=== PATIENT | female | born 1975 | race American Indian/Alaskan Native ===

== ENCOUNTER 2017-09-05 15:06 | Inpatient (IN) | payer MEDICAID ==
[2017-09-05] MEDS ORDERED: ALUM-MAG HYDROX-SIMETH 200-200-20MG/5ML PO ONE (16:15)
[2017-09-05] MEDS ORDERED: PEPCID PO ONE (16:15)
[2017-09-05] MEDS ORDERED: LIDOCAINE VISCOUS 2% PO ONE (16:15)
--- NOTE | 2017-09-05 16:17 | Emergency Department Report ---
ED Back Pain/Injury HPI - General Chief Complaint: Back Pain/Injury Stated Complaint: PAIN MID BACK THAT RAD TO EPIGASTRIC AREA Time Seen by Provider: 09/05/17 16:08 Source: patient, RN notes reviewed, old records reviewed Mode of arrival: Ambulatory Limitations: No Limitations - History of Present Illness MD Complaint: back pain, other (RAD THRU TO EPIGASTRIC AREA AND INTO CHEST) -: Gradual, week(s) Similar Symptoms Previously: No Place: home Radiation: other (THORACIC BACK AREA TO EPIGASTRIC TO CHEST) Quality: sharp Consistency: constant Improves With: other (GOODY'S ASA HELPS SOME. HAS TAKEN A LOT DURING PAST WEEKS) Worsens With: none Associated Symptoms: abdominal pain, malaise (SOMETIMES; NO HX FIBROIDS OR ENDOMETRIOSIS. LMP 1 W AGO), syncope (DIZZY SOMETIMES). denies: confusion, weakness, chest pain, numbness, difficulty walking, cough, difficulty urinating , diaphoresis, incontinence, fever/chills, constipation, headaches, loss of appetite, nausea/vomiting, rash, seizure, shortness of breath - Related Data Home Medications Medication Instructions Recorded Confirmed Last Taken No Known Home Medications [No 07/30/14 07/30/14 Unknown Reported Home Medications] Allergies Allergy/AdvReac Type Severity Reaction Status Date / Time No Known Allergies Allergy Verified 07/30/14 12:43 ED Review of Systems ROS: Stated complaint: BACK/CHEST PAIN Other details as noted in HPI Comment: All other systems reviewed and negative Constitutional: malaise. denies: fever Respiratory: denies: shortness of breath Cardiovascular: chest pain, syncope (DIZZY) Gastrointestinal: abdominal pain. denies: nausea, vomiting, diarrhea, constipation, hematemesis, melena Genitourinary: denies: urgency, dysuria Musculoskeletal: back pain. denies: joint swelling, arthralgia Skin: denies: rash, lesions Neurological: denies: headache, weakness Psychiatric: denies: anxiety, depression Hematological/Lymphatic: denies: easy bleeding ED Past Medical Hx - Past Medical History Previous Medical History?: Yes Hx Hypertension: No Hx Heart Attack/AMI: No Hx Asthma: No Hx COPD: No Additional medical history: HX LONG AGO OF ANEMIA- NEVER TOLD TO FOLLOW UP. TOLD IF SHE IS TIRED SHE SHOULD TAKE IRON. HAS NOT BEEN AN ISSUE FOR HER FAR SHE KNOWS IT. SHE TAKES IRON SOMETIMES - Surgical History Past Surgical History?: Yes Additional Surgical History: x 1 - Social History Smoking Status: Never Smoker Substance Use Type: Non Opiate Pain, Prescribed - Medications Home Medications: Home Medications Medication Instructions Recorded Confirmed Last Taken Type No Known Home Medications [No 07/30/14 07/30/14 Unknown History Reported Home Medications] ED Physical Exam - General Limitations: No Limitations General appearance: alert - Head Head exam: Present: normocephalic - Eye Eye exam: Present: PERRL, EOMI - ENT ENT exam: Present: mucous membranes moist, other (PALE) - Neck Neck exam: Present: normal inspection - Respiratory Respiratory exam: Present: normal lung sounds bilaterally - Cardiovascular Cardiovascular Exam: Present: regular rate - GI/Abdominal GI/Abdominal exam: Present: soft, tenderness (MILD EPIGASTRIC), normal bowel sounds, other (GUAIC POS FOR BLOOD- ). Absent: distended, guarding, rebound, rigid, diminished bowel sounds, hyperactive bowel sounds, hypoactive bowel sounds, organomegaly, mass, bruit, pulsatile mass, hernia - Rectal Rectal exam: Present: heme (+) stool. Absent: black stool, bloody stool, fecal impaction, hemorrhoids - Extremities Exam Extremities exam: Present: normal inspection - Back Exam Back exam: Present: normal inspection. Absent: full ROM, tenderness, CVA tenderness (R), CVA tenderness (L), muscle spasm, paraspinal tenderness, vertebral tenderness - Neurological Exam Neurological exam: Present: alert, oriented X3, CN II-XII intact, normal gait, reflexes normal. Absent: motor sensory deficit - Psychiatric Psychiatric exam: Present: normal affect, normal mood - Skin Skin exam: Present: warm, dry, intact, pallor ED Course Vital Signs 09/05/17 09/05/17 09/05/17 15:12 17:53 17:55 Temperature 97.7 F 96.9 F L Pulse Rate 77 69 Pulse Rate [ 73 Lying] Respiratory 16 Rate Blood Pressure 128/81 Blood Pressure 131/69 [Lying] Blood Pressure 122/83 [Right] O2 Sat by Pulse 100 Oximetry - Reevaluation(s) Reevaluation #1: 09/05/17 TO ER TODAY W THORACIC MID BACK PAIN THAT IS RAD TO THE EPIGASTRIC AREA AND UP INTO CHEST THIS HAS BEEN FOR WEEKS SHE HAS BEEN TAKING GOODYS FOR IT THE PAIN WAKES HER AT NIGHT NO N/V/D NO BLOODY STOOL NO ABD PAIN NO OTHER S/S NO PCP DENIED RX ON ADMIT NO FEVER VSS NO TACHY NO HYPOTENSION NO CVA TENDERNESS SEE EXAM LABS NOTED- GUIAC POS STOOL PER PROVIDER GI COCKTAIL W SOME RELIEF Reevaluation #2: 09/05/17 17:[address] BROUSSARD ADMIT TO DR LUO TRANSFUSE 1 U P RBC INT W NS WHEN PROBED PT MORE SHE SAID NO ONE EVER TOLD HER TO FOR 2013 ISSUE W COLON POLYPS SHE SAID AT ONE TIME SOMEONE TOLD HER SHE HAD ANEMIA AND SHE TAKE FE PRN MENSES LAST WEEK SHE IS TIRED DURING MENSES NO HX FIBROIDS OR ENDOMETRIOSIS ADDITIONAL ORDERS PLACED DR LUO AWARE OF P ADMIT. ED Medical Decision Making - Lab Data Result diagrams: 09/05/17 16:29 09/05/17 16:29 - EKG Data EKG shows normal: sinus rhythm - EKG Data Interpretation: no acute changes - Radiology Data Radiology results: report reviewed, image reviewed NO PERF - Medical Decision Making ADMIT RO U V. L GI BLEED NSAID USE DT BACK PAIN RO ULCER- NO FREE AIR ANEMIA- A/C REMOTE HX OF COLON POLYPS - Differential Diagnosis BACK PAIN ? ETIO Critical care attestation.: If time is entered above; I have spent that time in minutes in the direct care of this critically ill patient, excluding procedure time. ED Disposition Clinical Impression: GI bleed, Anemia, Epigastric pain Disposition: OP ADMIT IP TO THIS HOSP Is pt being admited?: Yes Does the pt Need Aspirin: No Condition: Stable Referrals: JESE MORALES MD [Primary Care Provider] - 3-5 Days Time of Disposition: 17:43
[2017-09-05 16:33] LABS: Bilirubin,Urine NEG (Negative); Blood,Urine NEG (Negative); Ketones,Urine NEG (Negative); Leukocyte Esterase,Urine NEG (Negative); Mucus,Urine 3+ /HPF; Nitrite,Urine NEG (Negative); Protein,Urine <15 mg/dL mg/dL (Negative); RBC,Urine < 1.0 /HPF (0.0-6.0); Urobilinogen,Urine < 2.0 mg/dL (<2.0)
[2017-09-05 17:03] LABS: Alanine Aminotransferase 7 units/L (7-56); Albumin 4.2 g/dL (3.9-5); Albumin/Globulin Ratio 1.7 %; Alkaline Phosphatase 84 units/L (35-129); Anion Gap 16 mmol/L; BUN/Creatinine Ratio 12; Bilirubin,Total < 0.20 mg/dL (0.1-1.2); Blood Urea Nitrogen 7 mg/dL (7-17); Calcium 8.9 mg/dL (8.4-10.2); Carbon Dioxide 24 mmol/L (22-30); Chloride 104.3 mmol/L (98-107); Glucose 81 mg/dL (65-100); Potassium 4.5 mmol/L (3.6-5.0); Sodium 140 mmol/L (137-145); Total Protein 6.7 g/dL (6.3-8.2)
--- NOTE | 2017-09-05 17:04 | XRay Report ---
FINAL REPORT PROCEDURE: XR CHEST ROUTINE 2V TECHNIQUE: Two views of the chest are obtained HISTORY: PAIN RAD FROM BACK THRU CHEST COMPARISON: No prior studies are available for comparison. FINDINGS: The heart is normal in size. There is no focal infiltrate, pneumothorax or pleural effusion. No compression fracture is seen in the visualized portions of the thoracic spine. There may be subtle dextroscoliosis in the mid thoracic spine. IMPRESSION: There may be minimal scoliosis in the mid thoracic spine.
[2017-09-05 17:05] LABS: Hematocrit 25.4 % (30.3-42.9); Hemoglobin 7.5 gm/dl (10.1-14.3); Mean Corpuscular HGB Conc 30 % (30-34); Platelet Count 604 K/mm3 (140-440); Red Blood Count 4.34 M/mm3 (3.65-5.03); White Blood Count 8.4 K/mm3 (4.5-11.0)
[2017-09-05 17:07] LABS: Mean Corpuscular Hemoglobin 17 pg (28-32); Mean Corpuscular Volume 58 fl (79-97); Red Cell Distribution Width 20.7 % (13.2-15.2)
[2017-09-05] MEDS ORDERED: NACL 0.9% 500 ML 500 ML IV ONE (17:30)
[2017-09-05 17:38] LABS: Iron 18 ug/dL (37-170); Total Iron Binding Capacity 450 mcg/dL (250-450)
[2017-09-05] MEDS ORDERED: NACL 0.9% 1000 ML 1,000 ML IV ONE (17:41)
[2017-09-05] MEDS ORDERED: NACL 0.9% 1000 ML 1,000 ML ONE (17:45)
[2017-09-05] MEDS ORDERED: ZOFRAN IV PRN (22:59)
[2017-09-05] MEDS ORDERED: MORPHINE IV PRN (22:59)
[2017-09-06] MEDS ORDERED: NACL 0.9% 250ML 250 ML ONE (01:18)
[2017-09-06 01:33] LABS: Hematocrit 26.1 % (30.3-42.9); Hemoglobin 7.8 gm/dl (10.1-14.3)
[2017-09-06] MEDS ORDERED: NACL 0.9% 250ML 250 ML IV ONE (01:44)
[2017-09-06] MEDS: NACL 0.9% 1000 ML 1,000 ML IV SCH ×2 (04:30→15:17)
--- NOTE | 2017-09-06 05:39 | History and Physical Report ---
CHIEF COMPLAINT: Back pain. Other complaints include epigastric pain. HISTORY OF PRESENT ILLNESS: The patient is a 42-year-old female who has been having back pain that radiates to the epigastric area. The patient denied history of nausea or vomiting and denies history of fever or chills and said that she has been having black stools going on for some days. There is no history of fever or chills and no history of hematochezia or hematemesis or dysuria PAST MEDICAL HISTORY: Pertinent for anemia. PAST SURGICAL HISTORY: Pertinent for a . FAMILY HISTORY: Noncontributory. SOCIAL HISTORY: The patient does not smoke, does not drink alcohol and does not use illicit drugs. MEDICATIONS: The patient is not on any home medications. ALLERGIES: There are no known drug allergies. REVIEW OF SYSTEMS: CONSTITUTIONAL: There is no fever, no chills, no diaphoresis. HEENT: There is no headache or sore throat. CARDIOVASCULAR SYSTEM: There is no chest pain, orthopnea. RESPIRATORY SYSTEM: There is no shortness of breath or cough. GASTROINTESTINAL SYSTEM: Epigastric abdominal pain present. No nausea, no vomiting, no diarrhea or constipation. However, dark colored stools noted. NEUROLOGICAL SYSTEM: There is no numbness, no dizziness, no altered mental status. MUSCULOSKELETAL SYSTEM: Back pain present. No joint swelling. DERMATOLOGICAL SYSTEM: Show no skin rash or itching. GENITOURINARY SYSTEM: Showed no dysuria, hematuria, or flank pain. Rest of system review is normal. PHYSICAL EXAMINATION: GENERAL: At the time of exam, the patient was found to be alert, oriented x 3 and not in acute distress. VITAL SIGNS: Shows temperature of 98.3, pulse of 68, respirations 18, blood pressure 128/68, O2 sat of 99% on room air. HEENT: Showed pupils to be equal, round, reactive to light and accommodating. Extraocular muscles are intact. NECK: Supple with no JVD or carotid bruit. CARDIOVASCULAR SYSTEM: Show first and second heart sounds with no gallops or murmur. RESPIRATORY SYSTEM: Show good air entry on both sides of the lungs with no abnormal breath sounds. GASTROINTESTINAL SYSTEM: Show abdomen to be full, soft with epigastric tenderness, but no guarding or rigidity. NEUROLOGIC: Shows no focal deficit. MUSCULOSKELETAL: Show no joint swelling or tenderness. DERMATOLOGICAL: Show no skin rash. GENITOURINARY: Showing no costovertebral angle tenderness. PERTINENT LABORATORY AND IMAGING STUDIES: The patient had urinalysis done that shows elevated urine specific gravity of 1.031, otherwise rest of review was unremarkable. Urine test was negative. The patient's chemistry was unremarkable except for low iron level of 18 with a normal TIBC. Troponin level was unremarkable. Rest of chemistry was unremarkable. The patient had a CBC, showed normal white count with low hemoglobin of 7.5 and low hematocrit of 25.4 with low MCV of 58, low MCH of 17 and elevated LDW of 20.7 with elevated platelet count of 604. IMAGING STUDIES: The patient had chest x-ray done, shows scoliosis in the mid thoracic spine area; otherwise, no cardiopulmonary lesion was found in the chest x-ray. The patient's stool occult blood test was positive. DIAGNOSES: 1. Gastrointestinal bleeding. 2. Anemia. 3. Abdominal pain. PLAN: The patient will be admitted to medical floor on telemetry. We will have hemoglobin and hematocrit checked q. 6 hours x 4 more levels. The patient will have Gastroenterology consult with Kiersten Jenkins and in particular with Dr. Sean Pabon. The patient will be n.p.o. for possible endoscopy in the morning and will be on IV Protonix 40 mg daily. The patient will be on IV normal saline at 125 mL an hour, will be on IV Zofran 4 mg q. 6 hours for nausea and vomiting. The patient will also be on oxygen by nasal cannula at 2 liters per minute. JOB# [id number] OCN/NTS MTDD
[2017-09-06 07:57] LABS: Hematocrit 26.4 % (30.3-42.9); Hemoglobin 8.5 gm/dl (10.1-14.3)
[2017-09-06] MEDS ORDERED: PROTONIX IV SCH (10:00)
--- NOTE | 2017-09-06 10:48 | Gastroenterology Consultation ---
History of Present Illness - Reason for Consult Consult date: 09/06/17 GI bleed Requesting physician: JAMIA BURRIS - History of Present Illness Patient is a 42 y/o female with who presented to ED with c/o back pain that radiates to epigastric area and black stools. HGB on admission was noted to be 7.5. This am HGB is 8.5 s/p transfusion of 1 unit PRBCs. She describes epigastric pain as intermittent, dull ache with occasional sharp pain, and radiates from mid back. Reports black stool x 2 weeks. Admits to taking Goody's powder BID x last 3 weeks for back pain and monthly for menstrual pain. Denies fever, CP, SOB, dizziness, wt loss, N/V, hematemesis, diarrhea, constipation, or hematochezia. No active signs of bleeding this am. No hx liver disease. No Fhx of GI cancers. No previous EGD. Colonoscopy [place] [address] Rojas for constipation and hematochezia revealed a colon polyp, internal hemorrhoids, and melenosis coli. Past History Past Medical History: anemia Past Surgical History: Social history: lives with family. denies: smoking, alcohol abuse Family history: no significant family history Medications and Allergies Allergies Allergy/AdvReac Type Severity Reaction Status Date / Time No Known Allergies Allergy Verified 07/30/14 12:43 Home Medications Medication Instructions Recorded Confirmed Last Taken Type No Known Home Medications [No 07/30/14 09/06/17 Unknown History Reported Home Medications] Active Meds: Active Medications Sodium Chloride (Nacl 0.9% 1000 Ml) 1,000 mls @ 150 mls/hr IV DIRECT FRACISCO Last Admin: 09/06/17 04:30 Dose: 150 mls/hr Influenza Virus Vaccine Quadrival (Fluarix Quad [id number](36 Mos+)) 0.5 ml IM .ONCE ONE Stop: 09/06/17 12:01 Morphine Sulfate (Morphine) 2 mg IV Q3H PRN PRN Reason: Pain, Moderate (4-6) Ondansetron HCl (Zofran) 4 mg IV Q6H PRN PRN Reason: Nausea And Vomiting Pantoprazole Sodium (Protonix) 40 mg IV DAILY FRACISCO Review of Systems - Review of Systems All systems: negative Gastrointestinal: abdominal pain (epigastric), melena Exam - Constitutional Vital Signs: Temp Pulse Resp BP Pulse Ox 99.4 F 72 18 116/65 99 09/06/17 08:00 09/06/17 08:00 09/06/17 08:00 09/06/17 08:00 09/06/17 06:02 General appearance: no acute distress, obese - EENT Eyes: PERRL, EOM intact ENT: hearing intact - Respiratory Respiratory: bilateral: CTA - Cardiovascular Rhythm: regular Heart Sounds: Present: S1 & S2 Extremities: No edema - Gastrointestinal General gastrointestinal: Present: soft, non-tender, non-distended, normal bowel sounds - Integumentary Integumentary: Present: warm, dry - Neurologic Neurological: alert and oriented x3 - Labs CBC & Chem 7: 09/06/17 06:45 09/05/17 16:29 Lab Results: Laboratory Results - last 24 hr 09/06/17 09/06/17 00:27 06:45 Hgb 7.8 L 8.5 L Hct 26.1 L 26.4 L Assessment and Plan 1.GI bleed 2.melena -HGB 8.5- s/p transfusion of 1 unit PRBCs -continue to monitor H/H and transfuse as needed -no active signs of bleeding this am -hemodynamically stable -continue PPI -keep NPO -will schedule for EGD today -will follow
[2017-09-06] MEDS ORDERED: Fluarix Quad 2017-2018(36 MOS+ IM ONE (12:00)
[2017-09-06 13:47] LABS: Hematocrit 27.3 % (30.3-42.9); Hemoglobin 8.4 gm/dl (10.1-14.3)
[2017-09-06] MEDS ORDERED: XYLOCAINE MPF 2% ONE (15:00)
[2017-09-06] MEDS ORDERED: NACL 0.9% 1000 ML 1,000 ML IV SCH (15:00)
--- NOTE | 2017-09-06 15:22 | Anesthesia Day of Surgery ---
Anesthesia Day of Surgery - Day of Surgery Patient Examined: Yes Patient H&P Reviewed: Yes Patient is NPO: Yes
--- NOTE | 2017-09-06 15:22 | Anesthesia Consultation ---
Anesthesia Consult and Med Hx Date of service: 09/06/17 - Airway Anesthetic Teeth Evaluation: Good ROM Head & Neck: Adequate Mental/Hyoid Distance: Adequate Mallampati Class: Class II Intubation Access Assessment: Good - Pulmonary Exam CTA: Yes - Cardiac Exam Cardiac Exam: RRR - Pre-Operative Health Status ASA Pre-Surgery Classification: ASA2 Proposed Anesthetic Plan: MAC - Pulmonary Hx Smoking: No Hx Asthma: No Hx Sleep Apnea: No - Cardiovascular System Hx Hypertension: No Hx Heart Attack/AMI: No - Central Nervous System Hx Psychiatric Problems: No - Endocrine Hx Renal Disease: No Hx Liver Disease: No Hx Non-Insulin Dependent Diabetes: No - Hematic Hx Anemia: Yes (sp 1 PRBC) - Other Systems Hx Alcohol Use: Yes (occassionally) Hx Cancer: No Hx Obesity: Yes - Additional Comments Anesthesia Medical History Comments: NAC
[2017-09-06] MEDS ORDERED: DIPRIVAN 10 MG/ML IV ONE ×2 (15:35→16:07)
--- NOTE | 2017-09-06 16:25 | Post Operative Note ---
Pre-op diagnosis: Melena Post-op diagnosis: other (Ulcers) Findings: 1. 1cm white-based crated Duodenal ulcer, no active bleeding 2. 4mm white-based gastric antrum ulcer, no active bleeding, cold biopsy 3. Small hiatal hernia Procedure: EGD with cold biopsy Anesthesia: MAC Surgeon: KAIDEN WOLF Estimated blood loss: minimal Pathology: list (1. Gastric antrum, ulcer) Specimen disposition: to lab Condition: stable Disposition: floor (Recs: 1. May d/c home on PO protonix. 2. Patient should avoid all NSAIDs. 3. Patient to f/u in the clinic in 3-5 weeks for biopsy results and further management.)
--- NOTE | 2017-09-06 16:57 | Post Anesthesia Evaluation ---
- Post Anesthesia Evaluation Patient Participated: Yes Airway Patent: Yes Stable Respiratory Function: Yes Nausea/Vomiting: No Temp > 96.8F: Yes Pain Manageable: Yes Adequeate Hydration: Yes Anesthesia Complications: No Block Receding Appropriately: Not Applicable Patient on Ventilator: No
[2017-09-06] MEDS: PROTONIX PO SCH (17:34)
--- NOTE | 2017-09-06 18:34 | Progress Note ---
Assessment and Plan Assessment and plan: --Acute blood loss anemia, requiring blood transfusion Closely monitor H&H, transfuse as needed --GI bleeding, mild improvement Continue IV Protonix, GI evaluation noted and appreciated, scheduled for EGD today --Obesity; counseling done patient advised dietary modification and exercise as tolerated and weight reduction when medically stable --Chronic pain syndrome; patient strongly advised not to take NSAIDs aren't related to pain medications in view of GI bleeding Verbalized understanding Follow EGD Closely monitor H&H, if EGD is negative and H&H stable patient will be discharged home. History Interval history: Patient seen and examined medical records reviewed Admitted with GI bleeding, received 1 unit PRBC Scheduled for EGD today Patient has history of using Goody powder frequently Alert awake oriented 3 not in acute distress Vital Signs reviewed Hospitalist Physical - Constitutional Vitals: Temp Pulse Resp BP Pulse Ox 99 F 69 16 119/73 99 09/06/17 16:21 09/06/17 16:47 09/06/17 16:47 09/06/17 16:47 09/06/17 16:47 General appearance: Present: no acute distress, well-nourished, obese - EENT Eyes: Present: PERRL, EOM intact - Neck Neck: Present: supple, normal ROM - Respiratory Respiratory effort: normal Respiratory: negative: rales, rhonchi, wheezing - Cardiovascular Rhythm: regular Heart Sounds: Present: S1 & S2 - Extremities Extremities: no ischemia, No edema Peripheral Pulses: within normal limits - Abdominal General gastrointestinal: soft, non-tender, non-distended, normal bowel sounds - Integumentary Integumentary: Present: clear, warm - Psychiatric Psychiatric: appropriate mood/affect, cooperative - Neurologic Neurologic: CNII-XII intact, moves all extremities Results - Labs CBC & Chem 7: 09/06/17 13:06 09/05/17 16:29 Labs: Laboratory Last Values WBC 8.4 K/mm3 (4.5-11.0) 09/05/17 16:29 RBC 4.34 M/mm3 (3.65-5.03) 09/05/17 16:29 Hgb 8.4 gm/dl (10.1-14.3) L 09/06/17 13:06 Hct 27.3 % (30.3-42.9) L 09/06/17 13:06 MCV 58 fl (79-97) L 09/05/17 16:29 MCH 17 pg (28-32) L 09/05/17 16:29 MCHC 30 % (30-34) 09/05/17 16:29 RDW 20.7 % (13.2-15.2) H 09/05/17 16:29 Plt Count 604 K/mm3 (140-440) H 09/05/17 16:29 Sodium 140 mmol/L (137-145) 09/05/17 16:29 Potassium 4.5 mmol/L (3.6-5.0) 09/05/17 16:29 Chloride 104.3 mmol/L (98-107) 09/05/17 16:29 Carbon Dioxide 24 mmol/L (22-30) 09/05/17 16:29 Anion Gap 16 mmol/L 09/05/17 16:29 BUN 7 mg/dL (7-17) 09/05/17 16:29 Creatinine 0.6 mg/dL (0.7-1.2) L 09/05/17 16:29 Estimated GFR > 60 ml/min 09/05/17 16:29 BUN/Creatinine Ratio 12 % 09/05/17 16:29 Glucose 81 mg/dL (65-100) 09/05/17 16:29 Calcium 8.9 mg/dL (8.4-10.2) 09/05/17 16:29 Iron 18 ug/dL (37-170) L 09/05/17 16:29 TIBC 450 mcg/dL (250-450) 09/05/17 16:29 Total Bilirubin < 0.20 mg/dL (0.1-1.2) 09/05/17 16:29 AST 9 units/L (5-40) 09/05/17 16:29 ALT 7 units/L (7-56) 09/05/17 16:29 Alkaline Phosphatase 84 units/L (35-129) 09/05/17 16:29 Troponin T < 0.010 ng/mL (0.00-0.029) 09/05/17 16:29 Total Protein 6.7 g/dL (6.3-8.2) 09/05/17 16:29 Albumin 4.2 g/dL (3.9-5) 09/05/17 16:29 Albumin/Globulin Ratio 1.7 % 09/05/17 16:29 Lipase 38 units/L (13-60) 09/05/17 17:25 Urine Color Yellow (Yellow) 09/05/17 16:12 Urine Turbidity Clear (Clear) 09/05/17 16:12 Urine pH 5.0 (5.0-7.0) 09/05/17 16:12 Ur Specific Kinsey 1.031 (1.003-1.030) H 09/05/17 16:12 Urine Protein <15 mg/dl mg/dL (Negative) 09/05/17 16:12 Urine Glucose (UA) Neg mg/dL (Negative) 09/05/17 16:12 Urine Ketones Neg mg/dL (Negative) 09/05/17 16:12 Urine Blood Neg (Negative) 09/05/17 16:12 Urine Nitrite Neg (Negative) 09/05/17 16:12 Urine Bilirubin Neg (Negative) 09/05/17 16:12 Urine Urobilinogen < 2.0 mg/dL (<2.0) 09/05/17 16:12 Ur Leukocyte Esterase Neg (Negative) 09/05/17 16:12 Urine WBC (Auto) 2.0 /HPF (0.0-6.0) 09/05/17 16:12 Urine RBC (Auto) < 1.0 /HPF (0.0-6.0) 09/05/17 16:12 U Epithel Cells (Auto) 7.0 /HPF (0-13.0) 09/05/17 16:12 Urine Mucus 3+ /HPF 09/05/17 16:12 Urine HCG, Qual Negative (Negative) 09/05/17 16:12 Blood Type O POSITIVE 09/05/17 17:42 Antibody Screen Negative 09/05/17 17:42 Crossmatch See Detail 09/05/17 17:42
--- NOTE | 2017-09-06 18:43 | Event Note ---
Date: 09/06/17 Patient underwent EGD today Findings consistent with duodenal and gastric ulcers, very mild drop in H&H Patient complaints of some dizziness and weakness, we'll continue Protonix Close observation and monitoring of H&H overnight, if stable will discharge her tomorrow On order Protonix Strongly advised not to take NSAIDs or related pain medications, patient verbalized understanding
--- NOTE | 2017-09-06 19:48 | Operative Report ---
PROCEDURES PERFORMED: Esophagogastroduodenoscopy with cold biopsy. PREOPERATIVE DIAGNOSIS: Melena. POSTOPERATIVE DIAGNOSES: Duodenal and gastric ulcers. ENDOSCOPIST: Luis Silveira MD INSTRUMENT: PrepClass video endoscope. MEDICATIONS: MAC anesthesia by Anesthesia Services. COMPLICATIONS: No apparent complications. ESTIMATED BLOOD LOSS: Minimal. SPECIMENS: Gastric antrum/ulcer. COMPLICATIONS: None. IMPLANTS: None. ASSISTANT GROCERY: None. CONDITION AT COMPLETION: Stable. TECHNIQUE: The patient was informed of the risks and benefits of the procedure. She signed the informed consent to proceed. She was placed in left lateral decubitus position. The above sedative medications were given. Her vital signs remained stable throughout the procedure. The instrument was advanced from the mouth to the second portion of the duodenum under direct visualization. At that point, the bowel was insufflated and the endoscope was slowly withdrawn. The quality of her preparation was good. FINDINGS: 1. A 1 cm white-based ulcer in the duodenal bulb with no evidence of visible vessel or active bleeding. 2. A 4 mm white-based ulcer in the gastric antrum with no evidence of visible vessel; biopsies were taken around the margin to rule out malignancy as well as H. pylori. 3. Small hiatal hernia. RECOMMENDATIONS: 1. Okay to advance diet and discharge the patient home. 2. Protonix daily therapy. 3. The patient should discontinue all nonsteroidal anti-inflammatory drugs. 4. Follow up in clinic in 4 weeks for pathology results and further management. JOB# [id number] CECY/NTS
[2017-09-06] MEDS: TYLENOL PO PRN (22:30)
[2017-09-07] MEDS: TYLENOL PO PRN (07:07)
--- NOTE | 2017-09-07 07:33 | Discharge Summary ---
Providers - Providers Date of Admission: 09/05/17 22:49 Date of discharge: 09/07/17 Attending physician: MEGHANN CARDOSO 09/05/17 22:51 Consult to Physician [CONS] Routine Consulting Provider: JULIAN MENENDEZ Reason For Exam: GASTROINTESTINAL BLEED Place consult to:: JULIAN MENENDEZ Notified:: AMENADA Was contact made?: Yes Time called:: 09:31 Primary care physician: JESE MORALES Hospitalization Condition: Stable Disposition: DC-30 STILL A PATIENT Core Measure Documentation - Palliative Care Palliative Care/ Comfort Measures: Not Applicable Exam - Constitutional Vitals: Temp Pulse Resp BP Pulse Ox 98.4 F 67 16 114/67 97 09/07/17 05:12 09/07/17 05:12 09/07/17 05:12 09/07/17 05:12 09/07/17 05:12 Plan Activity: no restrictions Diet: regular Additional Instructions: avoid NSAIDs and similar medications. If you have any new episodes of bleeding contact M.D. or go to emergency room Follow up with: JESE MORALES MD [Primary Care Provider] - 3-5 Days KAIDEN WOLF MD [Staff Physician] - 7 Days Prescriptions: Ferrous Sulfate [Feosol 325 MG tab] 325 mg PO BID #60 tablet Pantoprazole [Protonix TAB] 40 mg PO QDAY #30 tablet
[2017-09-07 08:42] VITALS: BP 115/58
[2017-09-07] MEDS: PROTONIX PO SCH (09:38)
== END 2017-09-07 10:04 | disposition home or self-care (01) | DRG 378 ==
LOC: ED 15:06 → 4A 22:49
PROVIDERS: ADMIT Internal Medicine; ATTEND Internal Medicine
PROC: 30233N1 Transfusion of Nonautologous Red Blood Cells into Peripheral Vein, Percutaneous Approach (ICD-10-PCS; principal; 2017-09-06)
PROC: 3E0234Z Introduction of Serum, Toxoid and Vaccine into Muscle, Percutaneous Approach (ICD-10-PCS; 2017-09-06)
PROC: 0DB68ZX Excision of Stomach, Via Natural or Artificial Opening Endoscopic, Diagnostic (ICD-10-PCS; 2017-09-06)
DX: K25.4 Chronic or unspecified gastric ulcer with hemorrhage (principal); D62 Acute posthemorrhagic anemia; K26.4 Chronic or unspecified duodenal ulcer with hemorrhage; E66.01 Morbid (severe) obesity due to excess calories; G89.4 Chronic pain syndrome; K44.9 Diaphragmatic hernia without obstruction or gangrene; Z68.36 Body mass index [BMI] 36.0-36.9, adult; Z23 Encounter for immunization; Z71.3 Dietary counseling and surveillance
CPT/HCPCS: 36415; 71020; 80053; 81001; 81025; 83550; 83690; 84484; 85014; 85018; 85027; 86850; 86900; 86901; 86920; 88305; 88342; 90686; 93005; 93010; 96360; 96375; C9113; J2270; J2405; J2704; J7030; J7050; P9016